=== PATIENT | female | born 1990 | race Caucasian/White ===

== ENCOUNTER 2023-09-15 03:05 | Inpatient (IN) | payer BC, SELFPAY ==
[2023-09-15] VITALS (15 sets, daily range): BP systolic 101–130; BP diastolic 58–74; PULSE 68–86; RESP 14–21; TEMP 36.1–36.6; O2SAT 96–99; BMI 27.8
[2023-09-15 03:02] LABS: ROM Internal Control Test YES-OK TO RESULT pt. (Internal QC); ROM Patient Test POSITIVE (Negative)
[2023-09-15] MEDS: Lactated Ringers 1,000 ML 999 ML IV (03:22)
[2023-09-15] MEDS: Acetaminophen 500 MG Tablet 1000 MG PO ×4 (03:26→21:16)
[2023-09-15] MEDS: Sodium Citrate/Citric Acid 30 ML UDC PO (03:27)
[2023-09-15 03:33] LABS: Absolute Lymphocyte Count 2.27 X10^3/uL (0.83-4.51); Absolute Neutrophil Count 3.3 X10^3/uL (2.0-7.7); Basophil# 0.05 X10^3/uL; Basophil% 0.8 % (0-1); Eosinophil# 0.21 X10^3/uL; Eosinophils% 3.3 % (0-5); Hematocrit 34.8 % (37-47); Hemoglobin 10.6 g/dL (12.0-15.0); Lymphocyte # 2.27 X10^3/ul (0.83-4.51); Lymphocyte % 35.1 % (19-41); Mean Corp Hgb Conc 30.5 g/dL (32-36); Mean Corpuscular Hgb 23.9 pg (27.0-32.0); Mean Corpuscular Volume 78.4 fL (81-99); Mean Platelet Vol. 12.8 fl (6.2-12.0); Monocyte% 9.3 % (0-10); NRBC Flagged by Analyzer 0 % (0-5); Neutrophil # 3.29 X10^3/uL (2.7-7.7); Neutrophil % 50.9 % (47-70); Platelet Count 144 K/mm3 (150-450); RBC Distribution Width CV 13.8 % (11.6-14.6); RBC Distribution Width SD 38.9 fl (35.1-43.9); Red Blood Count 4.44 M/mm3 (4.2-5.4); White Blood Count 6.5 K/mm3 (4.4-11.0)
[2023-09-15] MEDS: Cefazolin 2 GM in 0.9% Normal Saline (100mL Bag) 100 ML IV (03:46)
--- NOTE | 2023-09-15 03:54 | PCM.HP.OB ---
HPI - General General Date of Admission: 09/15/23 Date of Service: 09/15/23 Chief Complaint: ROM HPI Narrative SLIM DENT, is a 33 F who presents with SROM at around 1 am. Previous c/s x 2 for repeat. Uncomplicated . Maternal Data Information Final PETE: 09/30/23 Gestational age: 37+6 [facility] Medical History (Updated 09/15/23 @ 03:[address] Rabia Tracy MD) Superficial varicosities Uterine fibroid Home Medications vit no.133-ferrous fumarate 28 mg-folic acid 800 mcg tablet () 1 tab PO DAILY 09/15/23 [History Last Taken 09/14/23 18:00 1 TAB] Allergy/AdvReac Type Severity Reaction Status Date / Time No Known Allergies Allergy Verified 09/15/23 02:37 Surgical History (Updated 09/15/23 @ 03:[address] Rabia Tracy MD) History of surgery Previous section Social History Smoking Status: Never smoker History Elective abortions Hx Para 2 Spontaneous abortions Hx # Term Pregnancies Ectopic pregnancies Hx # Pregnancies Multiple births # of living children ROS Constitutional Constitutional: Denies fatigue, fever(s) or malaise Eyes Eyes: Denies change in vision ENT HEENT: Denies dizziness or headache(s) Cardiovascular Cardiovascular: Denies chest pain, dyspnea or lightheadedness Respiratory/Chest Respiratory/Chest: Denies cough or dyspnea Gastrointestinal Gastrointestinal: Denies change in bowel habits Genitourinary Genitourinary: Denies burning urination or genital lesions Integumentary Integumentary: Denies rash Neurologic Neurologic: Denies confusion, dizziness, headache(s), numbness or weakness Vital Signs Vital Signs Vital Signs: 09/15/23 03:36 09/15/23 02:40 09/15/23 02:40 Temperature 97.6 F L Temperature Source Temporal Pulse Rate 68 Respiratory Rate 16 Blood Pressure 130/74 H 130/74 H Blood Pressure Mean 92 BP Systolic 130 BP Diastolic 74 Blood Pressure Source Monitor Blood Pressure Position Semi-Fowlers Blood Pressure Location Right Arm Pulse Ox 99 Oxygen Delivery Method Room Air 09/15/23 02:40 09/15/23 02:40 09/15/23 02:40 Temperature Temperature Source Tympanic Pulse Rate 71 Respiratory Rate 16 Blood Pressure Blood Pressure Mean BP Systolic BP Diastolic Blood Pressure Source Blood Pressure Position Blood Pressure Location Pulse Ox Oxygen Delivery Method 09/15/23 02:40 09/15/23 02:40 Temperature 97.6 F L Temperature Source Pulse Rate Respiratory Rate Blood Pressure Blood Pressure Mean BP Systolic BP Diastolic Blood Pressure Source Blood Pressure Position Blood Pressure Location Pulse Ox 99 Oxygen Delivery Method Weight Weight: 67 kg Body Mass Index (BMI) 27.8 Physical Exam Const alert and no apparent distress General Appearance: cooperative HEENT normocephalic Resp normal respiratory effort GI soft to palpation GI Narrative: gravid, nontender, appropriate for gestational age Extremity no calf tenderness General Extremity: edema Skin no wounds Rashes: No rashes noted Psych activity/motor behavior normal Labs Labs Labs: Blood Type Pending Antibody Screen Pending Hct 34.8 % (37-47) L Hgb 10.6 g/dL (12.0-15.0) L Syphilis Total Ab Pending Assessment & Plan (1) 37 weeks gestation of : (2) SROM (spontaneous rupture of membranes): PLAN: Plan Repeat c/s
[2023-09-15] MEDS: Oxytocin 15 Units/NS 250ml 15 UNITS/250 ML IV.SOLN 83 UNITS IV (04:56)
--- NOTE | 2023-09-15 05:02 | OP.PCM_ITS ---
Assessment & Plan (1) Delivery by section: (2) 37 weeks gestation of : Maternal Data Information Final PETE: 09/30/23 Gestational age: 37+6 Details Operative Information Date of Procedure: 09/15/23 Pre-Operative Diagnosis: Previous SROM Post-Operative Diagnosis: same Indications for : Repeat Elective Classification: BEHZAD Procedure Type: low transverse technical cable jointer #1: Josh Morales Type of Anesthesia: Spinal Anesthesiologist: David Chacko Antibiotic Given: Ancef 2 grams IV x1 Drain: Olivo to straight drain Estimated Blood Loss: 500 cc Fluids Replaced: 1000 cc Procedure Start Time: 04:06 Procedure Stop Time: 04:40 Time of Delivery: 04:11 Findings Description of Procedure: Patient was taken to the OR with IV running. Spinal anesthesia was administered. She was placed in dorsal supine position with leftward tilt. Olivo was placed. She was prepped and draped in a normal sterile fashion. Anesthesia was verified as adequate. A Pfannenstiel incision was made over the previous scar and carried down to the underlying fascia. The fascia was incised and extended laterally. The Fascia was dissected off the rectus muscle and divided in the midline. The peritoneum was entered bluntly. The bladder blade was placed. A bladder flap was created. A low transverse incision was made in the lower uterine segment and extended bluntly. The head was elevated and delivered through the incision without difficulty. The rest of the body was delivered. The infant cried upon delivery. The cord was clamped and cut and the infant handed to the nurse. The placed was delivered by expression. The uterus was exteriorized and cleared of clot and debris. The incision was repaired with 1-0 Vicryl in a running locked fashion x 2. The uterus was returned to the abdomen. The gutters were cleared. The peritoneum was closed with Monocryl. The fascia was closed with 1-0 Vicryl. The subcutaneous tissue was closed with 2-0 Monocryl. The skin was closed with 4-0 monocryl. Presentation: Positive for Vertex and VELASQUEZ Amniotic Membrane Rupture Type: Spontaneous Time of Membrane Ruptured: 0115 Amniotic Fluid Description: Clear Placental Delivery Description: Expressed Placenta Disposition: [facility] Cord Vessel Description: 3 Vessels Cord Entanglement: None A Gender: Male (1 minute): 9 (5 minute): 9 Delayed Cord Clamping: Yes
[2023-09-15 05:17] LABS: Syphilis Antibodies Non-reactive
[2023-09-15] MEDS: Ketorolac 30 MG/ML Syringe IV ×3 (05:59→18:11)
[2023-09-15] MEDS: Senna/Docusate Sodium 1 Tablet 2 TABLET PO (10:03)
[2023-09-15] MEDS: 0.9% Saline Lock 10 ML Syringe IV ×2 (12:13→18:11)
[2023-09-16] MEDS: Ketorolac 30 MG/ML Syringe IV (00:35)
[2023-09-16] MEDS: 0.9% Saline Lock 10 ML Syringe IV (00:36)
[2023-09-16 00:44] VITALS: BP 102/72; PULSE 69; RESP 16; TEMP 36.6; O2SAT 96
[2023-09-16] MEDS: Acetaminophen 500 MG Tablet 1000 MG PO ×3 (03:12→15:33)
[2023-09-16] MEDS: Ibuprofen 600 MG Tablet PO ×2 (06:30→12:16)
[2023-09-16 06:49] LABS: Absolute Neutrophil Count 6.4 X10^3/uL (2.0-7.7); Basophil# 0.06 X10^3/uL; Basophil% 0.6 % (0-1); Eosinophil# 0.21 X10^3/uL; Eosinophils% 2.2 % (0-5); Hematocrit 32.4 % (37-47); Mean Corp Hgb Conc 30.9 g/dL (32-36); Mean Corpuscular Hgb 24.6 pg (27.0-32.0); Mean Corpuscular Volume 79.8 fL (81-99); Mean Platelet Vol. 12.2 fl (6.2-12.0); Monocyte# 0.74 X10^3/uL; Monocyte% 7.7 % (0-10); NRBC Flagged by Analyzer 0 % (0-5); Platelet Count 138 K/mm3 (150-450); RBC Distribution Width SD 40.4 fl (35.1-43.9); Red Blood Count 4.06 M/mm3 (4.2-5.4); White Blood Count 9.6 K/mm3 (4.4-11.0)
[2023-09-16 07:58] VITALS: BP 113/76; PULSE 68; RESP 16; TEMP 36.6; O2SAT 100
--- NOTE | 2023-09-16 08:17 | PCM.PN.OB ---
Subjective Subjective Doing well. Sore but pain controlled. Breast feeding. Ambulating without difficulty. Voiding well. Objective Data Objective Data Vital Signs: Vital Signs Temp Pulse Resp BP Pulse Ox O2 Del Method 97.9 F 68 16 113/76 100 Room Air 09/16/23 07:58 09/16/23 07:58 09/16/23 07:58 09/16/23 07:58 09/16/23 07:58 09/16/23 07:58 Oxygen Delivery Method Room Air Weight: 67 kg Body Mass Index (BMI) 27.8 Intake & Output: Intake and Output for Last 24 Hours 09/14/23 09/15/23 09/16/23 23:59 23:59 23:59 Intake Total 2860 / 2860 Output Total 3300 / 3300 Balance -440 / -440 Lab / Micro Data 09/16/23 06:35 Labs: Laboratory Results - last 24 hr 09/16/23 06:35: WBC 9.6, RBC 4.06 L, Hgb 10.0 L, Hct 32.4 L, MCV 79.8 L, MCH 24.6 L, MCHC 30.9 L, RDW Std Deviation 40.4, RDW Coeff of Obed 14.0, Plt Count 138 L, MPV 12.2 H, Immature Gran % (Auto) 0.500, Neut % (Auto) 67.0, Lymph % (Auto) 22.0, [place] % (Auto) 7.7, Eos % (Auto) 2.2, Baso % (Auto) 0.6, Absolute Neuts (auto) 6.4, Absolute Lymphs (auto) 2.10, Nucleated RBC % 0 ROS Constitutional Constitutional: Denies fatigue, fever(s) or malaise Eyes Eyes: Denies change in vision ENT HEENT: Denies dizziness or headache(s) Respiratory/Chest Respiratory/Chest: Denies cough or dyspnea Gastrointestinal Gastrointestinal: Denies change in bowel habits Genitourinary Genitourinary: Denies burning urination or genital lesions Integumentary Integumentary: Denies rash Neurologic Neurologic: Denies confusion, dizziness, headache(s), numbness or weakness Physical Exam Const alert General Appearance: cooperative GI GI Narrative: soft, moderate distention, fundus firm, appropriately tender. Abdominal bandage clean dry and intact Assessment & Plan (1) Delivery by section: PLAN: [place] home. Followup in 2 weeks
--- NOTE | 2023-09-16 08:25 | DS.PCM_ITS ---
Providers Date of Admission: 09/15/23 Date of Discharge: 09/16/23 Primary Care Physician: Dr. Maksim Willoughby DO Reason For Visit: REPEAT C SECTION Diagnosis Discharge Diagnosis (1) Delivery by section: Status: Acute Plan: DC home. Followup in 2 weeks Medications at Discharge Home Medications vit no.133-ferrous fumarate 28 mg-folic acid 800 mcg tablet () 1 tab PO DAILY 09/15/23 Hospital Course Operations section Procedures None Summary of Care Provided Minutes Spent on Discharge: 21 Hospital Course: Presented with SROM and labor. Previous . For repeat . Uncomplicated delivery and . Breast feeding on discharge Physical Exam Const alert General Appearance: cooperative GI GI Narrative: soft, moderate distention, fundus firm, appropriately tender. Abdominal bandage clean dry and intact Weight / BMI Weight Weight: 67 kg Body Mass Index (BMI) 27.8 ABG / Lab / Microbiology Data 09/16/23 06:35 Laboratory: Laboratory Results - last 24 hr 09/16/23 06:35: WBC 9.6, RBC 4.06 L, Hgb 10.0 L, Hct 32.4 L, MCV 79.8 L, MCH 24.6 L, MCHC 30.9 L, RDW Std Deviation 40.4, RDW Coeff of Obed 14.0, Plt Count 138 L, MPV 12.2 H, Immature Gran % (Auto) 0.500, Neut % (Auto) 67.0, Lymph % (Auto) 22.0, [place] % (Auto) 7.7, Eos % (Auto) 2.2, Baso % (Auto) 0.6, Absolute Neuts (auto) 6.4, Absolute Lymphs (auto) 2.10, Nucleated RBC % 0 D/C Instructions Discharge Diet: No restrictions May resume sexual activity in: 4-6 weeks Lifting Restrictions: 20 pounds Additional Activity Instructions: Nothing in the vagina for 4-6 weeks. You may return to work/school in 6 weeks. Call your doctor if your incision/area has: Continuous Slow Oozing, Sudden Increased Bleeding, Increased Pain/ Swelling, Increased Redness and Foul Smelling Discharge Call your doctor if you observe: Fever of 101 or Higher and Using more than 1 pad per hour (for 2 hours) Suture Line Care: Avoid Pulling/Pushing and Avoid Pinching/Bending Cleanse incision/area with: Keep Dressing Clean & Dry Please Follow Up With: Jeny De Santiago MD When: Call to make an appointment for an incision check in 2 [facility] [phone]. You will need a post check in 6 weeks. Meaningful Use Info Meaningful Use Meaningful Use Diagnoses (Choose all that apply): None applicable Ischemic Stroke Statin Dosing Therapy Reference: STATIN DOSE THERAPY REFERENCE: * Patients > 75 years receive moderate or high dose statin therapy. * Patients 75 years or YOUNGER should receive HIGH intensity statin dose unless contraindicated. You will be required to document reason for non-treatment if statin daily dose does not meet guidelines. HIGH DOSE STATIN THERAPY DAILY Atorvastatin > than or = to 40 mg Rosuvastatin > than or = to 20 mg Amlodipine + Atorvastatin > than or = to 2.5/40 mg Ezetimibe + Simvastatin 10/80 mg Simvastatin 80mg Discharge Plan Admission Admit Date/Time: 09/15/23 03:05 Primary Reason for Your Visit: SROM repeat Attending Provider: Rabia Tracy Primary Care Provider: Maskim Willoughby Discharge Orders/Prescriptions Prescriptions: Continued 28-800 mg-mcg tablet 1 tab PO DAILY Referrals / Follow Up: Maksim Willoughby DO [Primary Care Provider] - Disposition Disposition (needs filled in before D/C Order can be placed): Home, Self Care
[2023-09-16] MEDS: Senna/Docusate Sodium 1 Tablet 2 TABLET PO (12:17)
[2023-09-16 14:35] VITALS: BP 117/59; PULSE 82; RESP 16; TEMP 36.6; O2SAT 97
== END 2023-09-16 16:30 | disposition home or self-care (01) | DRG 788 ==
LOC: WPOUT 03:05 → WP 03:05
PROVIDERS: Admitting Provider Obstetrics & Gynecology; PCP Student in an Organized Health Care Education/Training Program; Visit Provider Obstetrics & Gynecology
DX: O34.219 Maternal care for unspecified type scar from previous cesarean delivery (principal); Z37.0 Single live birth; Z3A.37 37 weeks gestation of pregnancy
CPT/HCPCS: 59025; 59050; 84112; 85025; 86780; 86850; 86900; 86901; 99221; J7120; A4216; G0378; J2405